=== PATIENT | female | born 1950 | race Caucasian/White ===

== ENCOUNTER → 2024-10-31 | Outpatient (CLI) | payer BC, OTHER ==
[~2024-10-31] MED LIST: Amoxicillin500 MG PO; BISA5EC; CEPH500 PO; CLIM.025TP TOP; CRUTCH3 XX; Citrate Of Mag300 ML; DOCU100; Dazidox10 MG PO; ESTRTP VAG; FAMO20 PO; FLUT.05NI; HYDR1TAB94 PO; LAVAP17G; LORA.5 PO; MELO7.5 PO; NAPR220 PO; Norco 5-325 Ta1 EACH PO; OMEP20ER; ONDA4 PO; OXYC30; Omeprazole20 M1 PO; Oxycodone HCl5 M1; PROM25S PR; Percocet 10-321 EACH PO; RANI150 PO; SACC250C; SENN187 PO; SOMA250 MG; SOMA350 MG PO; SULTRIDS PO; TEMA15; TEMA30 PO; TRAZ50 PO; VAGIFEM10 MCG VG; Zofran Odt8 MG SL; Zofran8 MG PO
== END | disposition home or self-care (01) ==
LOC: LAB 17:48 → LAB SHORT 17:48
DX: S82.22 Transverse fracture of shaft of tibia (principal); S81.802A Unspecified open wound, left lower leg, initial encounter
CPT/HCPCS: 87070; 87077; 87147; 87186; 87205

== ENCOUNTER 2024-11-04 04:14 | Day surgery (SDC) | payer MEDICARE ==
[2024-11-04] MEDS ORDERED: Lidocaine HCl 4% Cream 5 GM ONE (14:42)
== END 2024-11-04 23:00 | disposition home or self-care (01) ==
LOC: WOUND 04:14
DX: L97.824 Non-pressure chronic ulcer of other part of left lower leg with necrosis of bone (principal); L97.822 Non-pressure chronic ulcer of other part of left lower leg with fat layer exposed; T81.31XA Disruption of external operation (surgical) wound, not elsewhere classified, initial encounter; Z88.1 Allergy status to other antibiotic agents
CPT/HCPCS: A9270; G0463

== ENCOUNTER 2024-11-10 00:02 | Day surgery (SDC) | payer MEDICARE, OTHER ==
[2024-11-10] MEDS ORDERED: Lidocaine HCl 4% Cream 5 GM ONE (12:56)
== END 2024-11-10 23:00 | disposition home or self-care (01) ==
LOC: WOUND 00:02
DX: T81.31XD Disruption of external operation (surgical) wound, not elsewhere classified, subsequent encounter (principal); L97.929 Non-pressure chronic ulcer of unspecified part of left lower leg with unspecified severity; Y83.8 Other surgical procedures as the cause of abnormal reaction of the patient, or of later complication, without mention of misadventure at the time of the procedure
CPT/HCPCS: A9270; G0463

== ENCOUNTER 2024-12-05 09:44 | Day surgery (SDC) | payer MEDICARE ==
[2024-12-05] MEDS ORDERED: Lidocaine HCl 4% Cream 5 GM ONE (15:17)
== END 2024-12-05 23:00 | disposition home or self-care (01) ==
LOC: WOUND 09:44
DX: L97.824 Non-pressure chronic ulcer of other part of left lower leg with necrosis of bone (principal); L97.822 Non-pressure chronic ulcer of other part of left lower leg with fat layer exposed; T81.31XA Disruption of external operation (surgical) wound, not elsewhere classified, initial encounter; R51.9 Headache, unspecified; M54.2 Cervicalgia; G89.29 Other chronic pain; F17.200 Nicotine dependence, unspecified, uncomplicated; Z53.29 Procedure and treatment not carried out because of patient's decision for other reasons; Z99.3 Dependence on wheelchair; Z88.1 Allergy status to other antibiotic agents; Z79.899 Other long term (current) drug therapy
CPT/HCPCS: 80053; 85025; 96361; 96374; 96375; 99283-25; A9270; G0463; J0780; J1100; J1200; J1885; J7030

== ENCOUNTER 2024-12-05 18:30 | Emergency (ER) | payer MEDICARE ==
[~2024-12-05] VITALS: Ht 160 cm; Wt 63.5 kg
[2024-12-05 18:49] VITALS: BP 131/85
[2024-12-05 19:39] LABS: BASOPHILS ABSOLUTE AUTO 0.03 K/mm3 (0.00-0.23); BASOPHILS PERCENT AUTO 0 % (0-2); EOSINOPHILS ABSOLUTE AUTO 0.13 K/mm3 (0.00-0.68); EOSINOPHILS PERCENT AUTO 2 % (0-6); Hematocrit 36.4 % (33.0-51.0); Hemoglobin 11.8 g/dL (11.5-16.0); IMMATURE GRAN ABSOLUTE AUTO 0.01 K/mm3 (0.00-0.10); IMMATURE GRAN PERCENT AUTO 0 % (0-1); LYMPHOCYTES ABSOLUTE AUTO 1.64 K/mm3 (0.84-5.20); LYMPHOCYTES PERCENT AUTO 23 % (21-46); MONOCYTES ABSOLUTE AUTO 0.46 K/mm3 (0.16-1.47); MONOCYTES PERCENT AUTO 7 % (4-13); Mean Corpuscular HGB 29.4 pg (26.0-34.0); Mean Corpuscular HGB Conc 32.4 g/dL (31.5-36.5); Mean Corpuscular Volume 91 fL (80-100); Mean Platelet Volume 10.3 fL (9.1-12.4); NEUTROPHILS ABSOLUTE AUTO 4.78 K/mm3 (1.96-9.15); NEUTROPHILS PERCENT AUTO 68 % (41-73); Platelet Count 250 K/mm3 (150-400); RDW Coefficient Variation 14.1 % (11.7-14.2); RDW Standard Deviation 46.9 fL (35.1-46.3); Red Blood Cell Count 4.01 M/mm3 (3.80-5.20); White Blood Cell Count 7.05 K/mm3 (4.00-11.30)
[2024-12-05 19:57] LABS: Albumin, Blood 3.6 g/dL (3.4-5.0); Albumin/Globulin Ratio 1.2 (0.8-1.8); Bilirubin, Total 0.4 mg/dL (0.1-1.0); Bun/Creatinine Ratio 20.4 (12.0-20.0); Calcium, Blood 8.6 mg/dL (8.5-10.1); Creatinine, Blood 0.59 mg/dL (0.40-1.00); Globulin, Blood 2.9 g/dL (2.2-4.0); Potassium, Blood 3.9 mmol/L (3.5-5.5); Total Protein, Blood 6.5 g/dL (6.4-8.2)
[2024-12-05] MEDS ORDERED: NS 1,000 ML IV SCH (20:30)
[2024-12-05] MEDS ORDERED: Ketorolac Tromethamine 15mg Vial IV ONE (20:30)
[2024-12-05] MEDS ORDERED: Prochlorperazine Edisylate 10 mg Vial IV ONE (20:30)
[2024-12-05] MEDS ORDERED: DiphenhydrAMINE HCl 50 MG/ML 1ML Vial IV ONE (20:30)
[2024-12-05] MEDS ORDERED: Dexamethasone Sodium Phosphate 4 MG/ML 1ML Vial IV ONE (20:30)
[2024-12-05] MEDS ORDERED: Acetaminophen 325 MG TABLET PO ONE (21:50)
[2024-12-05] MEDS ORDERED: OxyCODONE HCL 5 MG TAB PO ONE (21:55)
== END 2024-12-05 22:11 | disposition home or self-care (01) ==
LOC: ER 18:30
PROVIDERS: Student in an Organized Health Care Education/Training Program
DX: R51.9 Headache, unspecified (principal); M54.2 Cervicalgia; G89.29 Other chronic pain; F17.200 Nicotine dependence, unspecified, uncomplicated; Z53.29 Procedure and treatment not carried out because of patient's decision for other reasons; Z99.3 Dependence on wheelchair; Z88.1 Allergy status to other antibiotic agents; Z79.899 Other long term (current) drug therapy
CPT/HCPCS: 80053; 85025; A9270; J0780; J1100; J1200; J1885; J7030

== ENCOUNTER 2024-12-20 02:33 | Day surgery (SDC) | payer MEDICARE ==
[2024-12-20] MEDS ORDERED: Lidocaine HCl 4% Cream 5 GM ONE (14:16)
== END 2024-12-20 23:43 | disposition home or self-care (01) ==
LOC: WOUND 02:33
DX: L97.825 Non-pressure chronic ulcer of other part of left lower leg with muscle involvement without evidence of necrosis (principal)
CPT/HCPCS: A9270; G0463

== ENCOUNTER 2025-01-19 00:52 | Day surgery (SDC) | payer MEDICARE, OTHER ==
[2025-01-19] MEDS ORDERED: Lidocaine HCl 4% Cream 5 GM ONE (14:17)
== END 2025-01-19 23:00 | disposition home or self-care (01) ==
LOC: WOUND 00:52
DX: L97.824 Non-pressure chronic ulcer of other part of left lower leg with necrosis of bone (principal); L97.822 Non-pressure chronic ulcer of other part of left lower leg with fat layer exposed; T81.31XA Disruption of external operation (surgical) wound, not elsewhere classified, initial encounter
CPT/HCPCS: A9270

== ENCOUNTER 2025-02-16 01:34 | Day surgery (SDC) | payer MEDICARE, OTHER ==
[2025-02-16] MEDS ORDERED: Lidocaine HCl 4% Cream 5 GM ONE (15:47)
== END 2025-02-16 23:00 | disposition home or self-care (01) ==
LOC: WOUND 01:34
DX: L97.824 Non-pressure chronic ulcer of other part of left lower leg with necrosis of bone (principal)
CPT/HCPCS: A9270; G0463

== ENCOUNTER 2025-02-27 00:43 | Day surgery (SDC) | payer MEDICARE, OTHER ==
[2025-02-27] MEDS ORDERED: Lidocaine HCl 4% Cream 5 GM ONE (13:37)
== END 2025-02-27 23:00 | disposition home or self-care (01) ==
LOC: WOUND 00:43
DX: L97.826 Non-pressure chronic ulcer of other part of left lower leg with bone involvement without evidence of necrosis (principal); L97.825 Non-pressure chronic ulcer of other part of left lower leg with muscle involvement without evidence of necrosis
CPT/HCPCS: A9270; G0463